=== PATIENT | female | born 1960 | race Caucasian/White ===

== ENCOUNTER 2024-01-01 08:39 | Emergency (ER) | payer BC, MEDICAID ==
[~2024-01-01] VITALS: Ht 162.6 cm; Wt 52.2 kg
[~2024-01-01 08:39] MED LIST: IBUP-1969 PO; TRAM50TA2 PO
[2024-01-01 08:46] VITALS: BP_SYST 132; PULSE 92; RESP 18; TEMP 98.8; O2SAT 95
[2024-01-01 09:05] LABS: EOSINOPHILS % (AUTO) 0.4 % (0.0-4.0); HEMATOCRIT 36.5 % (36-48); HEMOGLOBIN 12.1 g/dL (12.0-16.0); LYMPHOCYTES % (AUTO) 43.4 % (20.5-51.5); MEAN CORPUSCULAR HEMOGLOBIN 29 pg (27-31); MEAN CORPUSCULAR HGB CONC 33 % (32-36); MEAN CORPUSCULAR VOLUME 87 fL (79.0-98.0); MONOCYTES # (AUTO) 0.4 K/uL (0.0-1.0); MONOCYTES % (AUTO) 9.2 % (1.7-9.3); NEUTROPHILS # (AUTO) 2.1 K/uL (1.8-7.7); PLATELET COUNT (AUTO) 265 K/uL (130-430); RED BLOOD CELL COUNT(AUTO) 4.17 MIL/uL (4.2-6.2); RED CELL DISTRIBUTION WIDTH 13.6 % (9.0-15.0); WHITE BLOOD COUNT (AUTO) 4.6 K/uL (4.8-10.8)
[2024-01-01 09:32] LABS: ANION GAP 7 (5-15); CALCIUM 8.8 mg/dL (8.4-11.0); CARBON DIOXIDE 27 mmol/L (23-29); CHLORIDE 105 mmol/L (98-107); CREATINE KINASE, TOTAL 130 U/L (26-192); CREATININE 0.78 mg/dL (0.55-1.30); GFR AFRICAN AMERICAN 96 mL/min (>90); GFR NON AFRICAN-AMERICAN 80 mL/min (>90); GLUCOSE 101 mg/dL (74-106); POTASSIUM 3.9 mmol/L (3.5-5.1); SODIUM SERUM 139 mmol/L (136-145); UREA NITROGEN, BLOOD 15 mg/dL (8-21)
[2024-01-01 09:42] LABS: PROTHROMBIN TIME 10.7 SECS (9.5-12.5)
[2024-01-01 09:56] LABS: INFLUENZA TYPE A Negative (NEGATIVE); INFLUENZA TYPE B NEGATIVE (NEGATIVE)
[2024-01-01] MEDS ORDERED: DIPH25CA83 PO (10:24)
[2024-01-01] MEDS ORDERED: ALBMDI INH (10:24)
[2024-01-01 10:33] VITALS: BP_SYST 132; PULSE 92; RESP 18; TEMP 98.8; O2SAT 95
== END 2024-01-01 10:32 | disposition home or self-care (01) ==
LOC: SED 08:39
DX: J40 Bronchitis, not specified as acute or chronic (principal); Z20.822 Contact with and (suspected) exposure to COVID-19; R07.89 Other chest pain; Z79.899 Other long term (current) drug therapy
CPT/HCPCS: 36415; 71045; 80048; 82550; 84484; 85025; 85610; 85730; 93005; 99285